=== PATIENT | female | born 1985 ===

== ENCOUNTER 2023-10-15 15:13 | Outpatient (AMB) | payer MEDICAID, SELFPAY ==
--- NOTE | 2023-10-15 15:00 | MHC.AM.SUB ---
Vital Signs 10/15/23 15:17 BP 118/78 Blood Pressure Location Rt brachial Position Sitting Pulse 65 Pulse Source Pulse Oximeter Pulse Oximetry (%) 98 Oxygen Delivery Method Room Air Intake Visit Reasons: MAT Intake Allergies No Known Allergies [No Known Allergies*] Allergy (Unverified 02/01/20 16:51) HPI HPI MAT Intake: Details: Patient presents today for intake Reports she was in recovery for 3 years and relapsed approx 2 months ago Unable to identify what triggered the relapse I was stupid , became tearful at this Currently using 50 bags of heroin daily both IN and IV Obtains clean needles through [facility] Hx of cocaine use, not current Daily tobacco use 1 pack/day Denies other illicit substance use Has previously been to detox in [place] Would like to go to detox again to transition back to suboxone Reports when detoxing the worst symptoms for her are: restless legs, vomiting, and diarrhea Was previously maintained on suboxone 8mg BID, states she self tapered off it approx 2.5 years ago Has no providers Reports hx of depression Uninterested in therapy referral at this time No hx of psych hospitalizations NKA No chronic medical issues reported Review of Systems Const Reports as per HPI Physical Exam Vital Signs: Last Vital Signs Pulse 65 10/15/23 15:17 BP 118/78 10/15/23 15:17 Pulse Ox 98 10/15/23 15:17 Oxygen Delivery Method Room Air 10/15/23 15:17 Const General: cooperative and no acute distress Resp Effort & Inspection: normal respiratory effort and able to speak in complete sentences Psych Appearance: grossly normal and well kempt Mental Status: mental status grossly normal Speech and movement: Normal speech and movement present Affect: normal affect Attitude: cooperative Results AMB 14 Panel Urine Drug Screen Urine Marijuana (THC) Positive Last Edit by Jessica Suh CMA on 10/15/23 15:25 Urine Cocaine Positive Last Edit by Jessica Suh CMA on 10/15/23 15:25 Urine Morphine Positive Last Edit by Jessica Suh CMA on 10/15/23 15:25 Urine Methamphetamine Positive Last Edit by Jessica Suh CMA on 10/15/23 15:25 Urine Amphetamine Negative Last Edit by Jessica Suh CMA on 10/15/23 15:25 Urine Benzodiazepine Negative Last Edit by Jessica Suh CMA on 10/15/23 15:25 Urine Barbiturates Negative Last Edit by Jessica Suh CMA on 10/15/23 15:25 Urine Methadone Negative Last Edit by Jessica Suh CMA on 10/15/23 15:25 Urine Buprenorphine Negative Last Edit by Jessica Suh CMA on 10/15/23 15:25 Urine Tricyclic Antidepressant Negative Last Edit by Jessica Suh CMA on 10/15/23 15:25 Urine MDMA Negative Last Edit by Jessica Suh CMA on 10/15/23 15:25 Urine Oxycodone Negative Last Edit by Jessica Suh CMA on 10/15/23 15:25 Urine Phencyclidine Negative Last Edit by Jessica Suh CMA on 10/15/23 15:25 Urine Propoxyphene Negative Last Edit by Jessica Suh CMA on 10/15/23 15:25 Results Reviewed Results Reviewed: Laboratory Last Values POC Urine Buprenorphine Negative 10/15/23 15:24 POC Urine Morphine Positive 10/15/23 15:24 POC Urine Oxycodone Negative 10/15/23 15:24 POC Urine Methadone Negative 10/15/23 15:24 POC Urine Propoxyphene Negative 10/15/23 15:24 POC Urine Barbiturates Negative 10/15/23 15:24 POC U Tricyclic Antidpr Negative 10/15/23 15:24 POC Urine PCP Negative 10/15/23 15:24 POC Ur Amphetamines Negative 10/15/23 15:24 POC Ur Methamphetamine Positive 10/15/23 15:24 POC Urine MDMA Negative 10/15/23 15:24 POC Ur Benzodiazepine Negative 10/15/23 15:24 POC Urine Cocaine Positive 10/15/23 15:24 POC Ur Marijuana (THC) Positive 10/15/23 15:24 Assessment & Plan Assessment & Plan (1) Opioid use disorder: Code(s): F11.90 - Opioid use, unspecified, uncomplicated Category: Medical Plan: -terminal computer operator discussed local detoxes and process of getting into detox with patient, she was provided with list of numbers -Reviewed with patient to follow up with [facility] Wednesday for an induction at home should she be unable to get into detox over the weekend -RN discussed harm reduction, provided pt with narcan and fentanyl test strips Orders: Orders HIV Ab/Ag 10/15/23 Z76.89 - Persons encountering health services in other specified circumstances Complete Blood Count Auto Diff 10/15/23 Z76.89 - Persons encountering health services in other specified circumstances Comprehensive Met. Panel 10/15/23 Z76.89 - Persons encountering health services in other specified circumstances AMB 14 Panel Urine Drug Screen 10/15/23 Z51.81 - Encounter for therapeutic drug level monitoring Hepatitis A,B,C Profile 10/15/23 Z76.89 - Persons encountering health services in other specified circumstances
[2023-10-15 15:17] VITALS: BP 118/78; PULSE 65; O2SAT 98
== END 2023-10-15 15:58 | disposition home or self-care (01) ==
PROVIDERS: Visit Provider Nurse Practitioner Family
DX: F11.90 Opioid use, unspecified, uncomplicated (principal)
CPT/HCPCS: 99204

== ENCOUNTER → 2023-10-15 15:13 | Outpatient (BNVA) | payer MEDICAID, SELFPAY | PROVIDERS: Visit Provider Nurse Practitioner Family | DX: Z51.81 Encounter for therapeutic drug level monitoring (principal); F11.20 Opioid dependence, uncomplicated | CPT/HCPCS: 80305; 99212 ==

== ENCOUNTER 2023-11-04 13:33 | Outpatient (AMB) | payer MEDICAID, SELFPAY ==
--- NOTE | 2023-11-04 15:42 | MHC.AM.SUB ---
Vital Signs 11/05/23 09:22 BP 132/76 Blood Pressure Location Lt brachial Pulse 97 Pulse Source Pulse Oximeter Pulse Oximetry (%) 95 Oxygen Delivery Method Room Air Intake Visit Reasons: MAT Allergies No Known Allergies [No Known Allergies*] Allergy (Unverified 02/01/20 16:51) HPI HPI MAT: Details: Bala presents for OUD treatment She states she continues to use (40-50 bags a day), last use 5 hrs ago Beginning to feel sick Wishes to detox in an [facility] Would like to get her affairs together over the next week Review of Systems Const Reports body aches GI Reports nausea Physical Exam Const General: diaphoretic Resp Effort & Inspection: normal respiratory effort Psych Appearance: grossly normal Speech and movement: Normal speech and movement present Affect: normal affect Attitude: cooperative Thought process: Normal thought process present Assessment & Plan Assessment & Plan (1) Opioid use disorder: Code(s): F11.90 - Opioid use, unspecified, uncomplicated Category: Medical Plan: -Patient encouraged to call [facility] next week when she is ready for detox (?[facility]) -She has narcan at home -T/w reviewed with her to never use alone, she reports she does not. Educated her about the never use alone hotline -Follow up 1 week
[2023-11-05 09:22] VITALS: BP 132/76; PULSE 97; O2SAT 95
== END 2023-11-04 13:51 | disposition home or self-care (01) ==
PROVIDERS: Visit Provider Nurse Practitioner Family
DX: F11.90 Opioid use, unspecified, uncomplicated (principal)
CPT/HCPCS: 99213

== ENCOUNTER → 2023-11-04 13:33 | Outpatient (BNVA) | payer MEDICAID, SELFPAY | PROVIDERS: Visit Provider Nurse Practitioner Family | DX: F11.20 Opioid dependence, uncomplicated (principal) | CPT/HCPCS: 99212 ==

== ENCOUNTER 2024-01-07 10:19 | Emergency (ER) | payer MEDICAID, SELFPAY ==
[2024-01-07 10:21] VITALS: BP 158/104; PULSE 105; O2SAT 99
--- NOTE | 2024-01-07 10:26 | ED.GENADULT ---
HPI - General Adult General Chief complaint: Overdose Stated complaint: OD Time Seen by Provider: 01/07/24 10:21 Source: patient, EMS and police Mode of arrival: EMS Limitations: no limitations History of Present Illness ED Provider: Shaquille SCHAEFER HPI narrative: 38 year old female hx of substance use disorder, presents s/p overdose, found OD by police. Recieved 4mg of intranasal narcan w/ good effect. Now feeling slightly nauseated. Reports she used 1 baggie of dope . No reported trauma or falls. Not si/hi. No hallcinations. Other than nausea no other medical complaints. Denies cp, sob. vomiting, diarrhea, headache, vision changes, dizziness, weakness. Related Data Allergies Allergy/AdvReac Type Severity Reaction Status Date / Time No Known Allergies Allergy Unverified 01/07/24 10:37 [No Known Allergies*] Review of Systems Review of Systems: Yes all other systems are reviewed and are negative PMFSH Past Medical History Attestation statement: The following information was validated with the patient. Source: old records reviewed and nursing notes reviewed Physical Exam ED Vital Signs: BMI result Body Mass Index 25.7 vss Appearance: Alert.? Oriented X3.? No acute distress.Yelling screaming demanding to leave Head: Normocephalic, atraumatic, no step-offs or deformities Eyes: Pupils equal, round and reactive to light.? CVS: Normal heart rate and rhythm.? Pulses normal.? Respiratory: No respiratory distress.? Breath sounds normal.? Abdomen: Soft and nontender.? Skin: Skin warm and dry.? Normal skin color.? Normal skin turgor.? Extremities: No lower extremity edema.? No calf ttp. 5/5 strength to bilateral upper and lower extremities Back: No midline tenderness, no C-spine tenderness, full range of motion, no CVA tenderness bilaterally Neuro: Oriented X 3.? No motor deficit.? No sensory deficit. 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 She is unwilling to wait she states that this is stupid. She does not want to get changed over, when they tried to change patient over she grabbed drugs from various body parts and tried to snort them, fighting with security and refusing further care. Would like to go home. I explained her the risks of leaving. Will leave with Narcan. Patient alert and oriented x4 and able to make her own decisions. No indication for Section 12. Educated patient on diagnosis and treatment plan, answered all question, patient verbalizes understanding. At this time patient will be discharged home, advised to return with new or worsening symptoms. Educated on worrisome signs and symptoms and when to return. At this time I feel comfortable discharge home. Time: 10:44 Medical Decision Making Medical Decision Making [facility] Narrative: 1027 38 year old female presents w/ pd and ems for OD PE - erratic movments hx and pe consistent w/ overdose s/p narcan. No signs of trauma to head, neck, chest, abd or pelvis Plan- CORRAL, SUDE if patient allows Differential Diagnosis Differential Diagnoses: The differential diagnosis associated with the presentation includes hx and pe consistent w/ overdose s/p narcan. No signs of trauma to head, neck, chest, abd or pelvis Admission/Observation Consideration of admission/observation: Escalation of care including admission/observation considered No indicaiton Chronic Conditions Patient?s care impacted by: Other (opiate use disorder ) Critical Care Time Critical Care Time Critical Care Time: No Discharge Plan Discharge Clinical Impression: Drug overdose, Left against medical advice Patient Disposition: Left Against Medical Advice Instructions: Adult Overdose (ED) Additional Instructions: Take your medications as prescribed. If you were prescribed antibiotics today, it is important that you take your medication to their entirety, do not skip any doses, do not finish them early. Follow-up with your primary care provider this week. Return to the emergency department with new or worsening symptoms. Such as fevers, chills, chest pain, shortness of breath, nausea, vomiting, dizziness, headache, vision changes, lethargy In case of emergency call 911 Referrals: [facility] [Provider Group] - 1 day Stand Alone Forms: Against Medical Advice Print Language: Samoan
[2024-01-07 10:37] VITALS: BMI 25.7
[2024-01-07] MEDS: Ondansetron ODT 4 MG TAB.RAPDIS TRANSLINGU (10:46)
[2024-01-07] MEDS: Naloxone HCl Nasal 4 MG SPRAY NOSTRILALT (10:46)
[2024-01-07] MEDS: Naloxone HCl Nasal TAKE HOME 4 MG SPRAY 8 MG NOSTRILALT (10:47)
--- NOTE | 2024-01-07 10:51 | PC.NURSE ---
Changed into hospital attire, patient medicated per jul, had episode of loose stool while on stretcher, ambulated with steady gait to bathroom
--- NOTE | 2024-01-07 11:02 | PC.NURSE ---
Patient provided with take home narcan, and pull-ups. Brought to [facility] by denita to get belongings
--- NOTE | 2024-01-10 15:07 | MHC.RECOVRN ---
Attempted to call pt to follow up after overdose, went right to voicemail, voicemail is not patient's name.
== END 2024-01-07 11:02 | disposition left against medical advice (07) ==
LOC: HO.ED 10:52
PROVIDERS: Emergency Provider Emergency Medicine
DX: T50.901A Poisoning by unspecified drugs, medicaments and biological substances, accidental (unintentional), initial encounter (principal); R11.0 Nausea; Y92.410 Unspecified street and highway as the place of occurrence of the external cause; Z53.29 Procedure and treatment not carried out because of patient's decision for other reasons
CPT/HCPCS: 99281; 99283